=== PATIENT | male | born 1935 | race Two or more races ===

== ENCOUNTER 2017-01-05 17:40 | Inpatient (IN) | payer MEDICARE, OTHER ==
[~2017-01-05] VITALS: Ht 188 cm; Wt 82.1 kg
[2017-01-05 18:00] VITALS: BP 127/69
--- NOTE | 2017-01-05 18:10 | NUR ---
POWER AND RECOVERY SUPERVISOR NOTES RECEIVED PT FROM 2 AMBULANCE PERSONNEL VIA [facility], PT ADMIT FROM [facility], PT IS AWAKE, ALERT AND ORIENTED, NO COMPLAINT OF PAIN, NOT IN DISTRESS, ASSISTED TO BED, MADE COMFORTABLE, ROOM SET UP ORIENTATION PROVIDED TO PT, VERBALIZED UNDERSTANDING, VITAL SIGNS TAKEN AND RECORDED, BODY CHECK DONE, AWAITING ADMITTING ORDERS FROM DR. STOVER.
[2017-01-05] MEDS ORDERED: ONDANSETRON HCL/PF 4 MG/2 ML VIAL IVP PRN (18:30)
[2017-01-05] MEDS ORDERED: MORPHINE SULFATE INJ 2 MG/ML DISP.SYRIN IV PRN (18:30)
[2017-01-05] MEDS ORDERED: Z GUARD REMEDY 2 OZ OINT TP PRN (18:30)
[2017-01-05] MEDS ORDERED: ACETAMINOPHEN 325 MG TABLET PO PRN (18:30)
[2017-01-05] MEDS ORDERED: ENOXAPARIN SODIUM 40 MG/0.4 ML DISP.SYRIN SQ SCH (18:30)
[2017-01-05] MEDS ORDERED: MAG HYDROX/AL HYDROX/SIMETH 30 ML UDC PO PRN (18:30)
[2017-01-05] MEDS ORDERED: MAGNESIUM HYDROXIDE 30 ML UDC PO PRN (18:30)
[2017-01-05] MEDS ORDERED: BENZ-20 PO (18:49)
[2017-01-05] MEDS ORDERED: ALLO300T2 PO (18:49)
[2017-01-05] MEDS ORDERED: TAMS-12 PO (18:49)
[2017-01-05] MEDS ORDERED: ALBU18HF2 IH (18:49)
[2017-01-05] MEDS ORDERED: FLUC200T8 PO (18:49)
[2017-01-05] MEDS ORDERED: LEVO500T15 PO (18:49)
[2017-01-05] MEDS ORDERED: CHOL100044 PO (18:49)
[2017-01-05] MEDS ORDERED: HYDR10SY7 PO (18:49)
[2017-01-05] MEDS ORDERED: ONDA-25 PO (18:49)
[2017-01-05] MEDS ORDERED: CITA10TA9 PO (18:49)
[2017-01-05] MEDS ORDERED: DOCU-25 PO (18:49)
[2017-01-05] MEDS ORDERED: GUAI120L56 PO (18:49)
[2017-01-05] MEDS ORDERED: PRED5TAB48 PO (18:49)
[2017-01-05] MEDS ORDERED: FAMO20TA8 PO (18:49)
[2017-01-05] MEDS ORDERED: MULT-416 PO (18:49)
[2017-01-05] MEDS ORDERED: SULF1TAB48 PO (18:49)
[2017-01-05] MEDS ORDERED: SALI45LI MM (18:49)
[2017-01-05] MEDS ORDERED: ACYC400T PO (18:49)
[2017-01-05] MEDS ORDERED: HYDR-552 PO (18:49)
[2017-01-05] MEDS ORDERED: ASPI81TA2 PO (18:49)
[2017-01-05] MEDS ORDERED: LORA1TAB82 PO (18:49)
[2017-01-05] MEDS ORDERED: LEVO150T8 PO (18:49)
[2017-01-05] MEDS ORDERED: METO25TA6 PO (18:50)
[2017-01-05 19:00] VITALS: BP 118/71
[2017-01-05] MEDS ORDERED: IPRATROPIUM NEB FS 0.5 MG/2.5 ML AMPUL.NEB NEB PRN (19:00)
[2017-01-05] MEDS ORDERED: ALBUTEROL FS 2.5 MG/0.5 ML VIAL.NEB NEB PRN (19:00)
--- NOTE | 2017-01-05 19:00 | NUR ---
RN NOTES RECEIVED NEW ADMISSION IN BED, ALERT AND ORIENTED X4, MONEGAS[place] SPEAKING ONLY, CALM, HAVING SHORTNESS OF BREATH ON EXERTION, SPO2 AT ROOM AIR 96%, DIMINISHED BREATH SOUNDS TO RIGHT LOWER LOBE, NO COMPLAIN OF PAIN, ABDOMEN SOFT AND NON-TENDER, ACTIVE BOWEL SOUNDS, RIGHT WRIST PERIPHERAL LINE IS PATENT AND FLUSHING WELL. NEEDS ATTENDED, DAUGHTER AT THE BEDSIDE.
[2017-01-05 19:09] LABS: CALCIUM, SERUM 8.4 mg/dL (8.5-10.1); CARBON DIOXIDE 26 mmol/L (21-32); CHLORIDE 103 mmol/L (98-107); CREATININE 1.3 mg/dL (0.6-1.3); GLUCOSE 109 mg/dL (74-106); POTASSIUM 4.7 mmol/L (3.5-5.1); SODIUM SERUM 136 mmol/L (136-145); UREA NITROGEN, BLOOD 21 mg/dL (7-18)
--- NOTE | 2017-01-05 19:30 | NUR ---
RN NOTES PATIENT PICKED UP BY OUTREACH ANALYST FOR CT SCAN
[2017-01-05 20:00] VITALS: BP 118/71
[2017-01-05] MEDS ORDERED: ENOXAPARIN SODIUM 40 MG/0.4 ML DISP.SYRIN SQ ONE (20:02)
[2017-01-05] MEDS: IV NS 0.9% 1,000 ML IV PRN (20:45)
[2017-01-05] MEDS: HYDROCODONE/APAP 5/325MG 1 EACH TABLET PO PRN (22:14)
[2017-01-06] VITALS: BP 115/67
[2017-01-06] MEDS: ZOLPIDEM TARTRATE 5 MG TABLET PO PRN ×2 (00:19→21:38)
[2017-01-06 04:00] VITALS: BP 126/71
--- NOTE | 2017-01-06 06:48 | NUR ---
RN NOTES PATIENT IN BED, ALERT AND ORIENTED X4, CALM, WITH SOB ON EXERTION AND AMBULATION, RIGHT AC PERIPHERAL LINE IS PATENT AND INFUSING WELL, PATEINT REQUIRES ASISSTANCE IN AMBULATING TO THE TOILET. NEEDS ATTENDED, CALL LIGHT WITHIN REACH.
[2017-01-06 07:02] VITALS: BP 115/67
[2017-01-06 07:38] LABS: BASOPHILS % (AUTO) 0.5 % (0.0-2.0); EOSINOPHILS # (AUTO) 0.2 /CMM (0.0-0.7); EOSINOPHILS % (AUTO) 3.3 % (0.0-6.0); HEMATOCRIT 31 % (39-51); HEMOGLOBIN 10.4 g/dL (13.5-17.5); LYMPHOCYTES # (AUTO) 0.7 /CMM (0.8-4.8); MEAN CORPUSCULAR HEMOGLOBIN 29 PG (26.0-33.0); MEAN CORPUSCULAR HGB CONC 34 g/dl (31.0-36.0); MEAN CORPUSCULAR VOLUME 85 fL (80-96); MONOCYTES # (AUTO) 0.4 /CMM (0.1-1.30); MONOCYTES % (AUTO) 8.5 % (2.0-12.0); NEUTROPHILS # (AUTO) 3.8 /CMM (1.8-8.9); NEUTROPHILS % (AUTO) 73.7 % (43.0-81.0); PLATELET COUNT (AUTO) 153 /CMM (150-450); RDW COEFFICIENT OF VARIATION 20.5 (11.5-15.0); RED BLOOD CELL COUNT(AUTO) 3.63 MIL/uL (4.5-6.0); WHITE BLOOD COUNT (AUTO) 5.1 K/uL (4.3-11.0)
[2017-01-06 07:54] LABS: ALANINE AMINOTRANSFERASE 29 U/L (12-78); ALBUMIN 2.3 g/dL (3.4-5.0); ALKALINE PHOSPHATASE 78 U/L (46-116); ASPARTATE AMINOTRANSFERASE 21 U/L (15-37); B-TYPE NATRIURETIC PEPTIDE 7687 PG/ML (0-125); BILIRUBIN,TOTAL 0.4 mg/dL (0.2-1.0); CALCIUM, SERUM 8.4 mg/dL (8.5-10.1); CARBON DIOXIDE 29 mmol/L (21-32); CHLORIDE 105 mmol/L (98-107); CREATININE 1.3 mg/dL (0.6-1.3); GLUCOSE 83 mg/dL (74-106); MAGNESIUM 1.8 mg/dL (1.8-2.4); PHOSPHORUS 3.5 mg/dL (2.5-4.9); POTASSIUM 4.8 mmol/L (3.5-5.1); SODIUM SERUM 138 mmol/L (136-145); TOTAL PROTEIN, SERUM 5.4 g/dL (6.4-8.2); UREA NITROGEN, BLOOD 22 mg/dL (7-18)
--- NOTE | 2017-01-06 07:59 | NUR ---
INSTRUCTOR BRIDGE: INITIAL NOTE RECEIVED PT A/OX4. TOGOLESE SPEAKING. ON 2L NC SATING AT 95%. NO DISTRESS NOTED. NO PAIN NOTED. NO SOB NOTED. ON TELE MONITOR. SB AT 59BPM. SKIN INTACT. AMBULATES WITH ASSIST. ON CARDIAC DIET. R WRIST #20 RUNNING NS AT 75ML/HR. SITE CLEAR AND PATENT. NOTIFIED MD ABOUT MED RECON. RESTING COMFORTABLY IN BED. CALL LIGHT WITHIN REACH.
[2017-01-06] MEDS ORDERED: LORAZEPAM 1 MG TABLET PO PRN (09:00)
[2017-01-06] MEDS ORDERED: hydrOXYzine HCL SYRUP 10 MG/5 ML UDC PO PRN (09:00)
[2017-01-06] MEDS ORDERED: BENZONATATE 100 MG CAPSULE PO PRN (09:00)
[2017-01-06] MEDS ORDERED: ALBUTEROL FS 2.5 MG/0.5 ML VIAL.NEB NEB PRN (09:30)
[2017-01-06] MEDS ORDERED: IPRATROPIUM NEB FS 0.5 MG/2.5 ML AMPUL.NEB NEB PRN (09:30)
[2017-01-06] MEDS: IV NS 0.9% 1,000 ML IV PRN (09:49)
[2017-01-06] MEDS: CHOLECALCIFEROL 1,000 UNIT TABLET (VIT D3) PO SCH (09:50)
[2017-01-06] MEDS: TAMSULOSIN 0.4 MG CAP.SR.24H PO SCH (09:50)
[2017-01-06] MEDS: FAMOTIDINE (20 MG) 20 MG TABLET PO SCH (09:50)
[2017-01-06] MEDS: ASPIRIN 81 MG TAB.CHEW PO SCH (09:50)
[2017-01-06] MEDS: LEVOTHYROXINE SODIUM 75 MCG TABLET PO SCH (09:50)
[2017-01-06] MEDS: CITALOPRAM HYDROBROMIDE 10 MG TABLET PO SCH (09:50)
[2017-01-06] MEDS: DOCUSATE SODIUM 100 MG CAPSULE PO SCH ×2 (09:50→17:10)
[2017-01-06] MEDS: ACYCLOVIR 200 MG CAPSULE PO SCH ×2 (09:50→20:29)
[2017-01-06] MEDS: METOPROLOL TARTRATE 25 MG TABLET PO SCH ×2 (09:51→17:11)
[2017-01-06] MEDS ORDERED: VANCOMYCIN 1 GM in IV D5W 250 ML IV ONE (10:00)
[2017-01-06] MEDS: FLUCONAZOLE (100 MG) 100 MG TABLET PO SCH (10:00)
[2017-01-06] MEDS ORDERED: LEVOTHYROXINE SODIUM 150 MCG TABLET PO SCH (10:00)
[2017-01-06] MEDS ORDERED: SALIVA STIMULANT AGENTS COMB MM PRN (10:30)
[2017-01-06] MEDS ORDERED: PIPERACILLIN /TAZOBACTAM 3.375 G in IV D5W 50 ML IV SCH (10:30)
--- NOTE | 2017-01-06 10:39 | NUR ---
RT RECEIVED PT IN NASAL CANNULA 2L. PT ALERT ORIENTED. NO RESPIRATORY DISTRESS NOTED ATT. SP02 99% 52HR 16RR. NO PRN TX GIVEN Addendum: 01/06/17 at 1048 by ELÍAS BOCANEGRA RT Amended: Links added.
[2017-01-06] MEDS ORDERED: MORPHINE SULFATE INJ 10 MG/ML DISP.SYRIN IV PRN (11:00)
[2017-01-06] MEDS: PIPERACILLIN /TAZOBACTAM 3.375 G in IV D5W 50 ML IV SCH ×2 (12:21→17:10)
[2017-01-06] MEDS ORDERED: FEE PK DOSING 1 MIN EA MC ONE (13:11)
--- NOTE | 2017-01-06 16:33 | NUR ---
ASKED DAUGHTER (SANTANA) ABOUT PREDNISONE MEDS. FAXED MED RECON PAPER PROVIDED BY DAUGHTER TO PHARMACY.
[2017-01-06] MEDS: predniSONE 10 MG TABLET PO SCH (17:10)
--- NOTE | 2017-01-06 17:15 | NUR ---
COLLECTED NASAL ASPIRATE FOR INFLUENZA ANTIGEN A/B PER MD PATHAK ORDER. SENT TO LAB.
[2017-01-06] MEDS ORDERED: FLUCONAZOLE IN NS 400 MG in PREMIX 1 EA IV SCH ×2 (18:00)
--- NOTE | 2017-01-06 18:56 | NUR ---
IV ON RIGHT WRIST LEAKING. D/C IV. SITE CLEAR. NO INFILTRATION NOTED. STARTED IV ON RIGHT WRIST NEW IV SITE CLEAR. NO REDNESS. NO PAIN. NO BLEEDING NOTED.
--- NOTE | 2017-01-06 18:57 | NUR ---
MS RN: CLOSING NOTE PT A/OX4. SUDANESE SPEAKING BUT UNDERSTANDS MALAYSIAN. D/C TELE AND NOW MS. ABLE TO AMBULATE WITH SLIGHT ASSIST. NEW IV ON R HAND #20 RUNNING NS AT 75ML/HR. SITE CLEAR AND PATENT. TOOK ALL MEDICATIONS ON TIME. NO ADVERSE REACTIONS NOTED. NO PAIN NOTED. N DISTRESS NOTED. NO SOB NOTED. ON 2L NC SATING AT 96%. ORDER FROM TO JOSUÉ TO OBTAIN MEDICAL RECORDS FROM [facility]. ELLIE DILLON MIGHT WANT TO TRANSFER PT TO [facility]. SPOKE TO CASE MANAGEMENT. PT RESTING IN BED COMFORTABLY. CALL LIGHT WITHIN REACH.
[2017-01-06] MEDS: LEVOFLOXACIN 500 MG /D5W 100ML 500 MG in PREMIX 1 EA IV SCH (19:27)
--- NOTE | 2017-01-06 19:30 | NUR ---
MS RN OPENING NOTES: PATIENT IN BED, AOX4, ON O2 AT 2 LPM VIA NC, BREATHING EVEN AND UNLABORED. APPEARS CALM AND IN NO DISTRESS. COMPLAINS OF COUGHING WITH SOME DIFFICULTY EXPECTORATING. HOB MAINTAINED ELEVATED. PIV OVER R HAND G 20 INTACT AND PATENT, INFUSING WELL WITH NS RUNNING AT 75 ML/HR. PROVIDED FOR COMFORT AND SAFETY. BED IN LOWEST NAD LOCKED POSITION, SIDERAILS UPX3, CALL LIGHT WITHIN REACH. WILL CONT TO MONITOR.
[2017-01-06 20:00] VITALS: BP 113/64
[2017-01-06] MEDS: GUAIFENESIN/CODEINE 10 ML UDC PO PRN (20:29)
[2017-01-06] MEDS: ENOXAPARIN SODIUM 40 MG/0.4 ML DISP.SYRIN SQ SCH (20:46)
[2017-01-06 22:00] VITALS: BP 113/64
[2017-01-06] MEDS: VANCOMYCIN 0.75 GM in IV D5W 250 ML IV SCH (23:05)
[2017-01-07] MEDS: PIPERACILLIN /TAZOBACTAM 3.375 G in IV D5W 50 ML IV SCH ×4 (00:23→18:32)
[2017-01-07] MEDS: GUAIFENESIN/CODEINE 10 ML UDC PO PRN (06:06)
[2017-01-07] MEDS: IV NS 0.9% 1,000 ML IV PRN (06:07)
--- NOTE | 2017-01-07 06:44 | NUR ---
MS RN CLOSING NOTES: PATIENT IN BED, AOX4, ON O2 AT 2 LPM VIA NC, BREATHING EVEN AND UNLABORED. DENIES PAIN. PIV OVER R HAND G 20 INTACT AND INFUSING WELL WITH NS RUNNING AT 75 ML/HR. DUE MEDS GIVEN. NEEDS ATTENDED. NO ACUTE CHANGE IN CONDITION THROUGH SHIFT. PROVIDED FOR COMFORT AND SAFETY. WILL ENDORSE TO AM RN FOR DANNA.
[2017-01-07 06:45] LABS: EOSINOPHILS % (AUTO) 0.3 % (0.0-6.0); HEMATOCRIT 30 % (39-51); HEMOGLOBIN 10.2 g/dL (13.5-17.5); LYMPHOCYTES # (AUTO) 0.6 /CMM (0.8-4.8); LYMPHOCYTES % (AUTO) 10.4 % (20.0-44.0); MEAN CORPUSCULAR HEMOGLOBIN 29 PG (26.0-33.0); MEAN CORPUSCULAR HGB CONC 34 g/dl (31.0-36.0); MEAN CORPUSCULAR VOLUME 85 fL (80-96); MONOCYTES # (AUTO) 0.4 /CMM (0.1-1.30); MONOCYTES % (AUTO) 6.5 % (2.0-12.0); NEUTROPHILS # (AUTO) 4.8 /CMM (1.8-8.9); NEUTROPHILS % (AUTO) 82.8 % (43.0-81.0); PLATELET COUNT (AUTO) 149 /CMM (150-450); RDW COEFFICIENT OF VARIATION 20.3 (11.5-15.0); RED BLOOD CELL COUNT(AUTO) 3.53 MIL/uL (4.5-6.0); WHITE BLOOD COUNT (AUTO) 5.8 K/uL (4.3-11.0)
[2017-01-07 07:01] LABS: CALCIUM, SERUM 8.4 mg/dL (8.5-10.1); CARBON DIOXIDE 25 mmol/L (21-32); CHLORIDE 103 mmol/L (98-107); CREATININE 1.4 mg/dL (0.6-1.3); GLUCOSE 115 mg/dL (74-106); POTASSIUM 4.8 mmol/L (3.5-5.1); SODIUM SERUM 137 mmol/L (136-145); UREA NITROGEN, BLOOD 22 mg/dL (7-18)
[2017-01-07 07:16] LABS: THYROID STIMULATING HORMONE 2.684 uIU/mL (0.358-3.74)
[2017-01-07 08:00] VITALS: BP 113/69
[2017-01-07] MEDS: METOPROLOL TARTRATE 25 MG TABLET PO SCH ×2 (08:52→16:52)
[2017-01-07] MEDS: CHOLECALCIFEROL 1,000 UNIT TABLET (VIT D3) PO SCH (08:53)
[2017-01-07] MEDS: ASPIRIN 81 MG TAB.CHEW PO SCH (08:53)
[2017-01-07] MEDS: DOCUSATE SODIUM 100 MG CAPSULE PO SCH ×2 (08:53→16:51)
[2017-01-07] MEDS: MULTIVIT, IRON, MIN NO. 8, FA 1 TAB PO SCH (08:53)
[2017-01-07] MEDS: ACYCLOVIR 200 MG CAPSULE PO SCH ×2 (08:53→21:09)
[2017-01-07] MEDS: TAMSULOSIN 0.4 MG CAP.SR.24H PO SCH (08:53)
[2017-01-07] MEDS: FLUCONAZOLE (100 MG) 100 MG TABLET PO SCH (08:53)
[2017-01-07] MEDS: CITALOPRAM HYDROBROMIDE 10 MG TABLET PO SCH (08:53)
[2017-01-07] MEDS: ALLOPURINOL 100 MG TABLET PO SCH (08:53)
[2017-01-07] MEDS: FAMOTIDINE (20 MG) 20 MG TABLET PO SCH (08:54)
[2017-01-07] MEDS: predniSONE 10 MG TABLET PO SCH (08:54)
[2017-01-07] MEDS: LEVOTHYROXINE SODIUM 75 MCG TABLET PO SCH (08:54)
--- NOTE | 2017-01-07 09:26 | NUR ---
RN Notes Awake, alert and oriented. Not in any form of distress. With 02 inhalation at 2LPN via nasal canula saturating at 97%. Lungs clear to auscultate. IV access on right hand gg 20 patent and intact. With ongoing IVF of NS at 75 cc/hr infusing well. No complain at this time. Call light place within easy reach.
[2017-01-07] MEDS: VANCOMYCIN 0.75 GM in IV D5W 250 ML IV SCH ×2 (12:02→22:53)
[2017-01-07 16:00] VITALS: BP 108/70
[2017-01-07] MEDS: LEVOFLOXACIN 500 MG /D5W 100ML 500 MG in PREMIX 1 EA IV SCH (16:51)
--- NOTE | 2017-01-07 18:37 | NUR ---
RN Notes Tylenol 650 mg tabs given for headache 05/18 ps.
--- NOTE | 2017-01-07 19:11 | NUR ---
RN Notes Resting well with no complain at this time. Needs anticipated. No untoward symptom noted within the shift. Will endorse to lieutenant shift supervisor nurse for continuity of care.
[2017-01-07 20:00] VITALS: BP 114/64
--- NOTE | 2017-01-07 20:00 | NUR ---
MS MELANIE INITIAL NOTES RECEIVED REPORT FROM AM NURSE AND CHECKED PT SEEN IN BED SITTING WHILE WATCHING TV AT THIS TIME WITH IVF OF NS AT 75ML/HR INFUSING ON HIS RIGHT NAD PATENT AND INTACT. DENIES ANY PAIN OR ANY DISCOMFORT. HE ONLY REQUESTED HIS SLEEP MEDICATION AT 2100. NO SIGNS OF ANY ACUTE DISTRESS NOTED. KEPT HIM WARM AND COMFORTABLE AT ALL TIMES. WILL CONTINUE TO MONITOR, PLACE CALL LIGHT AT REACH.
[2017-01-07] MEDS: ZOLPIDEM TARTRATE 5 MG TABLET PO PRN (21:10)
--- NOTE | 2017-01-07 21:10 | NUR ---
ATHLETIC EQUIPMENT MANAGER/NOTES ROUTINE MEDS GIVEN WELL HIS AMBIEN HE REQUESTED AND MD ORDERED. EDUCATE POSSIBLE SIDE EFFECT AND PT UNDERSTOOD WELL, KEPT HIM WARM AND COMFORTABLE AT ALL TIMES. WILL CONTINUE TO MONITOR. PLACE CALL LIGHT AT REACH.
[2017-01-07] MEDS: ENOXAPARIN SODIUM 40 MG/0.4 ML DISP.SYRIN SQ SCH (21:11)
[2017-01-07 22:00] VITALS: BP 114/64
--- NOTE | 2017-01-07 22:55 | NUR ---
FARM EQUIPMENT MECHANIC/NOTES VANCOMYCIN HUNG BY ANOTHER NURSE, HARSH/RN , NO VANCO TROUGH DUE AT THIS TIME. PT RESTING COOMFORTABLY WITH EYES CLOSED BUT AROUSES TO STIMULI. WILL CONTINUE TO MONITOR.
[2017-01-08] MEDS: PIPERACILLIN /TAZOBACTAM 3.375 G in IV D5W 50 ML IV SCH ×5 (00:05→23:56)
--- NOTE | 2017-01-08 00:50 | NUR ---
HOUSEHOLD APPLIANCE ASSEMBLER/ CLOSING NOTES PT SLEEPING COMFORTABLY IN BED WITHOUT ANY ACUTE DISTRESS NOTED. IVF STILL INFUSING, ENDORSE TO ANOTHER NURSE LASHA FOR CONTINUITY OF CARE.
--- NOTE | 2017-01-08 00:55 | NUR ---
RN NOTES RECEIVED REPORT FROM JOSELITO TO RESUME PATIENT CARE. PATIENT IS RESTING COMFORTABLY IN BED, EASILY AROUSEABLE, NO SOB, NO DISTRESS, NO COMPLAIN OF PAIN, WILL CONTINUE TO MONITOR, CALL LIGHT WITHIN REACH.
[2017-01-08] MEDS: IV NS 0.9% 1,000 ML IV PRN ×2 (01:18→16:37)
[2017-01-08 05:16] LABS: IMMUNOGLOBULIN A, SERUM 36 mg/dL (61-437); IMMUNOGLOBULIN G, SERUM 438 mg/dL (700-1600); IMMUNOGLOBULIN M, SERUM 91 mg/dL (15-143)
--- NOTE | 2017-01-08 06:22 | NUR ---
RN NOTES GIVEN TESSALON WILLOW FOR COUGH
[2017-01-08] MEDS: LEVOTHYROXINE SODIUM 75 MCG TABLET PO SCH (06:34)
--- NOTE | 2017-01-08 06:49 | NUR ---
RN NOTES PATIENT IN BED, ALERT AND AWAKE, NO SOB, TOLERATING 2LPM VIA NC, SPO2 98%, DENIES ANY PAIN AT THIS TIME, NOTED COUGHING, GIVEN MEDICATION, NO CHANGE OF CONDITION DURING SHIFT, RIGHT HAND PERIPHERAL LINE IS PATENT AND INFUSING WELL WITH NS AT 75 CC/HR, EXPECTORATED SPUTUM COLLECTED, ADEQUATE URINE OUTPUT, ALL DUE MEDICATIONS, NEEDS ATTENDED, CALL LIGHT WITHIN REACH.
[2017-01-08 07:13] LABS: BASOPHILS % (AUTO) 0.1 % (0.0-2.0); EOSINOPHILS # (AUTO) 0.1 /CMM (0.0-0.7); EOSINOPHILS % (AUTO) 2.1 % (0.0-6.0); HEMATOCRIT 30 % (39-51); LYMPHOCYTES # (AUTO) 0.5 /CMM (0.8-4.8); LYMPHOCYTES % (AUTO) 8.3 % (20.0-44.0); MEAN CORPUSCULAR HEMOGLOBIN 29 PG (26.0-33.0); MEAN CORPUSCULAR HGB CONC 34 g/dl (31.0-36.0); MEAN CORPUSCULAR VOLUME 86 fL (80-96); MONOCYTES # (AUTO) 0.5 /CMM (0.1-1.30); NEUTROPHILS # (AUTO) 4.6 /CMM (1.8-8.9); NEUTROPHILS % (AUTO) 80.5 % (43.0-81.0); PLATELET COUNT (AUTO) 140 /CMM (150-450); RED BLOOD CELL COUNT(AUTO) 3.46 MIL/uL (4.5-6.0); WHITE BLOOD COUNT (AUTO) 5.7 K/uL (4.3-11.0)
[2017-01-08 07:37] LABS: CALCIUM, SERUM 8.3 mg/dL (8.5-10.1); CARBON DIOXIDE 26 mmol/L (21-32); CHLORIDE 105 mmol/L (98-107); CREATININE 1.4 mg/dL (0.6-1.3); GLUCOSE 104 mg/dL (74-106); SODIUM SERUM 139 mmol/L (136-145); UREA NITROGEN, BLOOD 20 mg/dL (7-18)
--- NOTE | 2017-01-08 07:51 | NUR ---
MS RN: INITIAL NOTE RECEIVED PT A/OX4. BHUTANESE SPEAKING. ON 2L NC SATING AT 98%. NO DISTRESS NOTED. NO PAIN NOTED. NO SOB NOTED. USES URINAL. BEDREST BUT CAN AMBULATE WITH MINIMUM ASSIST. SKIN INTACT. ONC CARDIAC DIET. R HAND #20 RUNNING NS AT 75ML/HR. SITE CLEAR AND PATENT. PORTHA CATH USED FOR CHEMO IN THE PAST. RESTING COMFORTABLY IN BED. CALL LIGHT WITHIN REACH.
[2017-01-08 08:00] VITALS: BP 118/69
[2017-01-08] MEDS: ASPIRIN 81 MG TAB.CHEW PO SCH (08:59)
[2017-01-08] MEDS: FLUCONAZOLE (100 MG) 100 MG TABLET PO SCH (08:59)
[2017-01-08] MEDS: CITALOPRAM HYDROBROMIDE 10 MG TABLET PO SCH (09:00)
[2017-01-08] MEDS: DOCUSATE SODIUM 100 MG CAPSULE PO SCH ×2 (09:00→16:37)
[2017-01-08] MEDS: FERROUS SULFATE (325 MG) 325 MG/TAB TABLET PO SCH ×2 (09:00→16:37)
[2017-01-08] MEDS: FAMOTIDINE (20 MG) 20 MG TABLET PO SCH (09:00)
[2017-01-08] MEDS: predniSONE 10 MG TABLET PO SCH ×2 (09:00→16:37)
[2017-01-08] MEDS: MULTIVIT, IRON, MIN NO. 8, FA 1 TAB PO SCH (09:00)
[2017-01-08] MEDS: METOPROLOL TARTRATE 25 MG TABLET PO SCH ×2 (09:00→16:37)
[2017-01-08] MEDS: ALLOPURINOL 100 MG TABLET PO SCH (09:01)
[2017-01-08] MEDS: CHOLECALCIFEROL 1,000 UNIT TABLET (VIT D3) PO SCH (09:01)
[2017-01-08] MEDS: ACYCLOVIR 200 MG CAPSULE PO SCH ×2 (09:01→21:21)
[2017-01-08] MEDS: TAMSULOSIN 0.4 MG CAP.SR.24H PO SCH (09:01)
[2017-01-08] MEDS: HYDROCODONE/APAP 5/325MG 1 EACH TABLET PO PRN (09:03)
[2017-01-08 10:00] VITALS: BP 118/69
[2017-01-08] MEDS: VANCOMYCIN 0.75 GM in IV D5W 250 ML IV SCH ×2 (11:55→23:16)
[2017-01-08 16:00] VITALS: BP 119/69
--- NOTE | 2017-01-08 17:53 | NUR ---
PT IV ON R HADN LEAKING. D/C IV. SITE CLEAR. NO BLEEDING OR INFILTRATION NOTED. STARTED IV ON R FA #20. RUNNING IV NS AT 75ML/HR. SITE CLEAR AND PATENT.
--- NOTE | 2017-01-08 18:25 | NUR ---
MS RN: CLOSING NOTE PT A/OX4. GREENLANDIC SPEAKING BUT UNDERSTAND EQUATORIAL GUINEAN. AMBULATES WITH ASSIST. SKIN INTACT. TOOK ALL MEDICATIONS ON TIME. NO ADVERSE REACTIONS NOTED. NO PAIN NOTED. NO SOB NOTED. ON 2L; NC SATING AT 97%. ON CARDIAC DIET. R UA IV #20 RUNNING NS AT 75ML/HR. SITE CLEAR AND PATENT. NO BOWL MOVEMENT TODAY. RESTING COMFORTABLY IN BED. CALL LIGHT WITHIN REACH.
[2017-01-08] MEDS: LEVOFLOXACIN 500 MG /D5W 100ML 500 MG in PREMIX 1 EA IV SCH (18:45)
--- NOTE | 2017-01-08 19:15 | NUR ---
MS ANALYTICAL ENGINEER INITIAL NOTES RECEIVED REPORT FROM AM NURSE , SEEN PT IN BED SITTING WHILE TALKING TO MAIRA /TEST EQUIPMENT MECHANIC AND WATCHING TV . STILL WITH IVF OF NS AT 75ML/HR INFUSING AT THIS TIME ON HIS RIGHT FOREARM PATENT AND INTACT,NO REDNESS NOTED. PT REQUESTED HIS SLEEP MEDICATION AT 9PM . DENIES ANY PAIN OR ANY DISCOMFORT. KEPT HIM WARM AND COMFORTABLE AT ALL TIMES WILL CONTINUE TO MONITOR. PLACE CALL LIGHT AT REACH.
[2017-01-08 20:00] VITALS: BP 118/64
[2017-01-08] MEDS: ZOLPIDEM TARTRATE 5 MG TABLET PO PRN (21:21)
[2017-01-08] MEDS: ENOXAPARIN SODIUM 40 MG/0.4 ML DISP.SYRIN SQ SCH (21:24)
--- NOTE | 2017-01-08 21:25 | NUR ---
MS MELANIE NOTES ROUTINE MEDS GIVEN WELL HIS AMBIEN SLEEP MED HE REQUESTED. SAFETY PRECAUTION IMPLEMENTED. KEPT HIM WARM AND COMFORTABLE AT ALL TIMES. WILL CONTINUE TO MONITOR. PLACE CALL LIGHT AT REACH.
[2017-01-08 22:00] VITALS: BP 118/64
--- NOTE | 2017-01-09 01:00 | NUR ---
BOX SPINNER/NOTES PT SLEEPING COMFORTABLY IN BED WITHOUT ANY ACUTE DISTRESS NOTED. IVF STILL INFUSING. WILL CONTINUE TO MONITOR. CALL LIGHT WITHIN REACH.
[2017-01-09] MEDS: GUAIFENESIN/CODEINE 10 ML UDC PO PRN (03:15)
--- NOTE | 2017-01-09 03:15 | NUR ---
CLINICAL INFORMATICS SPEC. NOTES PT WOKE UP FROM COUGHING, NO SOB NOTED, ROBITUSSIN WITH CODEINE GIVEN ORDERED. KEPT HIM ON SEMI FOWLERS POSITION. WILL CONTINUE TO MONITOR.
[2017-01-09] MEDS: PIPERACILLIN /TAZOBACTAM 3.375 G in IV D5W 50 ML IV SCH ×3 (05:48→17:38)
[2017-01-09 07:10] LABS: *SPE A/G RATIO 1.2 (0.7-1.7); *SPE ALBUMIN 2.6 g/dL (2.9-4.4); *SPE ALPHA-1-GLOBULIN 0.3 g/dL (0.0-0.4); *SPE ALPHA-2-GLOBULIN 0.7 g/dL (0.4-1.0); *SPE BETA GLOBULIN 0.8 g/dL (0.7-1.3); *SPE GLOBULIN, TOTAL 2.2 g/dL (2.2-3.9); *SPE M-SPIKE Not Observed g/dL (Not Observed); *SPE PROTEIN TOTAL 4.8 g/dL (6.0-8.5); *SPEGAMMA GLOBULIN 0.4 g/dL (0.4-1.8)
--- NOTE | 2017-01-09 07:33 | NUR ---
MS WRECKER DRIVER CLOSING NOTES PT REMAINS SLEEPING AFTER COUGH MEDS GIVEN, BREATHING EVEN AND NON-LABORED, NOT IN ANY ACUTE DISTRESS NOTED. IVF STILL INFUSING ON HIS RIGHT UPPER ARM. ALL DUE MEDS ADMINISTERED. STABLE JAYCEE THE NIGHT. KEPT HIM WARM AND COMFORTABLE AT ALL TIMES. ENDORSE TO AM NURSE FOR CONTINUITY OF CARE. PLACE CALL LIGHT AT REACH.
[2017-01-09 07:44] LABS: CALCIUM, SERUM 8.4 mg/dL (8.5-10.1); CARBON DIOXIDE 28 mmol/L (21-32); CHLORIDE 102 mmol/L (98-107); CREATININE 1.3 mg/dL (0.6-1.3); GLUCOSE 97 mg/dL (74-106); POTASSIUM 4.1 mmol/L (3.5-5.1); SODIUM SERUM 137 mmol/L (136-145); UREA NITROGEN, BLOOD 17 mg/dL (7-18)
[2017-01-09 08:00] VITALS: BP 106/68
--- NOTE | 2017-01-09 08:25 | NUR ---
MS RN RECEIVED ON BED, AWAKE,ALERT,ORIENTED X4,NOT IN ANY FORM OF DISTRESS, RESPIRATIONS EVEN AND UNLABORED,NO SOB NOTED. LUNGS HAVE RONCHI BILATERALLY, ABDOMEN SOFT,POSITIVE BOWEL SOUNDS, DENIES PAIN AT THIS TIME, WILL MONITOR PATIENT'S CONDITION.
[2017-01-09] MEDS: METOPROLOL TARTRATE 25 MG TABLET PO SCH ×2 (09:00→17:39)
[2017-01-09] MEDS: CITALOPRAM HYDROBROMIDE 10 MG TABLET PO SCH (09:33)
[2017-01-09] MEDS: ASPIRIN 81 MG TAB.CHEW PO SCH (09:33)
[2017-01-09] MEDS: predniSONE 10 MG TABLET PO SCH ×2 (09:33→17:38)
[2017-01-09] MEDS: CHOLECALCIFEROL 1,000 UNIT TABLET (VIT D3) PO SCH (09:34)
[2017-01-09] MEDS: FAMOTIDINE (20 MG) 20 MG TABLET PO SCH (09:34)
[2017-01-09] MEDS: FERROUS SULFATE (325 MG) 325 MG/TAB TABLET PO SCH ×2 (09:34→17:38)
[2017-01-09] MEDS: FLUCONAZOLE (100 MG) 100 MG TABLET PO SCH (09:34)
[2017-01-09] MEDS: ALLOPURINOL 100 MG TABLET PO SCH (09:34)
[2017-01-09] MEDS: MULTIVIT, IRON, MIN NO. 8, FA 1 TAB PO SCH (09:34)
[2017-01-09] MEDS: TAMSULOSIN 0.4 MG CAP.SR.24H PO SCH (09:34)
[2017-01-09] MEDS: ACYCLOVIR 200 MG CAPSULE PO SCH (09:35)
[2017-01-09] MEDS: DOCUSATE SODIUM 100 MG CAPSULE PO SCH ×2 (09:37→17:38)
[2017-01-09] MEDS: LEVOTHYROXINE SODIUM 75 MCG TABLET PO SCH (09:38)
--- NOTE | 2017-01-09 09:55 | NUR ---
MS HAIRSTON BREAKFAST SERVED,DDUE MEDS GIVEN,TOLERATED WELL.
[2017-01-09 10:00] VITALS: BP 106/68
--- NOTE | 2017-01-09 11:00 | NUR ---
MS RN ON BED, DAUGHTER AT BEDSIDE.
[2017-01-09] MEDS: VANCOMYCIN 0.75 GM in IV D5W 250 ML IV SCH (12:10)
--- NOTE | 2017-01-09 15:00 | NUR ---
ms rn on bed, sleeping, patient will be transferred to [facility], daughter is aware.
[2017-01-09 16:00] VITALS: BP 115/70
[2017-01-09] MEDS ORDERED: PIPE3.379 IV (17:27)
[2017-01-09] MEDS ORDERED: VANC1PLA10 IV (17:27)
[2017-01-09 17:39] VITALS: BP 115/72
[2017-01-09] MEDS ORDERED: LEVOFLOXACIN (500MG) 500 MG TABLET PO SCH (18:00)
--- NOTE | 2017-01-09 18:24 | NUR ---
ms rm patient is ready for discharge, waiting for transportation, discharge instructions given,all needs attended.
--- NOTE | 2017-01-09 19:10 | NUR ---
ms laura hurley went to [facility], report given to arian. laura
[2017-01-11] MEDS ORDERED: predniSONE 10 MG TABLET PO SCH (09:00)
[2017-01-14] MEDS ORDERED: predniSONE 5 MG TABLET PO SCH (09:00)
== END 2017-01-09 19:15 | DRG 177 ==
LOC: TELE 17:40 → MED 01-06 09:01
PROVIDERS: ADMIT Family Medicine; ATTEND Family Medicine
DX: J15.6 Pneumonia due to other Gram-negative bacteria (principal); J96.21 Acute and chronic respiratory failure with hypoxia; C85.90 Non-Hodgkin lymphoma, unspecified, unspecified site; J90 Pleural effusion, not elsewhere classified; D69.6 Thrombocytopenia, unspecified; R13.10 Dysphagia, unspecified; J44.0 Chronic obstructive pulmonary disease with (acute) lower respiratory infection; J44.1 Chronic obstructive pulmonary disease with (acute) exacerbation; C25.9 Malignant neoplasm of pancreas, unspecified; E03.9 Hypothyroidism, unspecified; D50.9 Iron deficiency anemia, unspecified; E55.9 Vitamin D deficiency, unspecified; M10.9 Gout, unspecified; N40.0 Benign prostatic hyperplasia without lower urinary tract symptoms; I10 Essential (primary) hypertension; I70.0 Atherosclerosis of aorta; Z87.891 Personal history of nicotine dependence; Z79.82 Long term (current) use of aspirin; Z79.899 Other long term (current) drug therapy; Z92.21 Personal history of antineoplastic chemotherapy; Y95 Nosocomial condition; T45.1X5A Adverse effect of antineoplastic and immunosuppressive drugs, initial encounter; Y92.129 Unspecified place in nursing home as the place of occurrence of the external cause
CPT/HCPCS: 36415; 71010-TC; 71250-TC; 80048-TC; 80053-TC; 80202-TC; 82728-TC; 82746; 82784; 83540-TC; 83605-TC; 83735-TC; 83880; 84100-TC; 84155; 84165; 84443-TC; 85025-TC; 86334; 87070-TC; 87081-TC; 87400; A4216; J1450; J1650; J1956; J2543; J3370; J7030; J7060; Q0177; Z7610